=== PATIENT | female | born 1975 | race African-American/Black ===

== ENCOUNTER 2019-06-27 12:49 | Emergency (ER) | payer BC, OTHER ==
[2019-06-27 13:02] VITALS: BP 132/84
[2019-06-27] MEDS ORDERED: LIDOCAINE 5% (700 MG) TRANSDERMAL ADH..PATCH TP ONE (13:37)
[2019-06-27] MEDS ORDERED: DEXAMETHASONE SOD PHOS INJ 10 MG/1 ML VIAL IM ONE (13:37)
[2019-06-27] MEDS ORDERED: KETOROLAC TROMETHAMINE 60 MG/2 ML SDV IM ONE (13:37)
--- NOTE | 2019-06-27 13:43 | ER Document Report ---
HPI - HPI Patient complains to provider of: low back pain, sciatica Time Seen by Provider: 06/27/19 13:26 Onset: Other - jun Onset/Duration: Persistent Quality of pain: Achy Severity: Severe Pain Level: 5 Context: 44-year-old female with history of sciatica in the past presents emergency department with complaints of left-sided sciatica since June 09. Denies trauma. Denies fever vomiting diarrhea. Denies urinary bowel incontinence or retention. Denies IV drug use denies steroid use. Reports she has had sciatica in the past. Feels the same. Reports she is unable to get comfortable in any position. Has tried Aleve and Aspercreme. She reports Aspercreme will relieve the pain for little bit but it comes right back once the Aspercreme wears off. Patient reports the back pain is on the left side low back radiating down her left buttock down her left leg. She reports numbness and tingling at times. Patient is setting mostly on the right side. Associated Symptoms: None Exacerbated by: Supine Relieved by: Denies Similar symptoms previously: Yes Recently seen / treated by doctor: No - REPRODUCTIVE LMP: 05/28/19 Reproductive: DENIES: : Past Medical History - General Information source: Patient Last Menstrual Period: Due any day Denies - Social History Smoking Status: Never Smoker Chew tobacco use (# tins/day): No Lives with: Family Family History: None Patient has suicidal ideation: No Patient has homicidal ideation: No - Past Medical History Cardiac Medical History: Denies: Hx Coronary Artery Disease, Hx Hypertension Endocrine Medical History: Denies: Hx Diabetes Mellitus Type 1, Hx Diabetes Mellitus Type 2 Musculoskeletal Medical History: Reports Other - Sciatica Surgical Hx: Negative Vertical Provider Document - CONSTITUTIONAL Agree With Documented VS: Yes Exam Limitations: No Limitations General Appearance: WD/WN, No Apparent Distress - Patient nontoxic looking happy smiling laughing - INFECTION CONTROL TRAVEL OUTSIDE OF THE [place] IN LAST 30 DAYS: No - HEENT HEENT: Atraumatic, Normocephalic. negative: Conjuctival Injection - NECK Neck: Supple - RESPIRATORY Respiratory: Breath Sounds Normal, No Respiratory Distress - CARDIOVASCULAR Cardiovascular: Regular Rate - GI/ABDOMEN Gastrointestinal: Abdomen Soft, Abdomen Non-Tender - BACK Back: Normal Inspection - Reports very low left-sided back pain that radiates down her buttocks and down her left leg. Denies vertebral tenderness. negative: CVA Tenderness-Right, CVA Tenderness-Left - MUSCULOSKELETAL/EXTREMETIES Musculoskeletal/Extremeties: CHER LONG - NEURO Level of Consciousness: Awake, Alert, Appropriate Motor/Sensory: No Motor Deficit - DERM Integumentary: Warm, Dry Course - Re-evaluation Re-evalutation: 06/27/19 14:08 Patient presents emergency department with sciatica pain. Reports she has had in the past. Lidoderm patch was applied patient received Toradol and steroid shot. She reports she is feeling little bit better. Patient is now able to sit correctly. She was instructed on muscle relaxer and Lidoderm patch. She was also instructed follow-up with her primary care provider for recheck within 1 week. She verbalized understanding to all instructions. Pain on discharge 0/5 Low suspicion for any meningitis, fracture, expanding/ruptured AAA, cauda equina syndrome, epidural mass lesion/abscess, herniated disc causing severe spinal stenosis, or other systemic infection at this time. Patient is aware that this condition can change from initial presentation and that she needs monitor symptoms closely for any acute changes. - Vital Signs Vital signs: Temp Pulse Resp BP Pulse Ox 98.2 F 84 16 132/84 H 98 06/27/19 12:55 06/27/19 12:55 06/27/19 12:55 06/27/19 12:55 06/27/19 12:55 Discharge - Discharge Clinical Impression: Low back pain with sciatica Qualifiers: Chronicity: acute Back pain laterality: left Sciatica laterality: sciatica of left side Qualified Code(s): M54.42 - Lumbago with sciatica, left side Condition: Stable Disposition: HOME, SELF-CARE Instructions: Anti-Inflammatory Medication ([facility]), Muscle Relaxers ([facility]), Sciatica ([facility]), Steroid Medication Injection, Toradol Injection ([facility]) Additional Instructions: *You have been evaluated for low back pain with sciatica *Take medication as prescribed *Apply the Lidoderm patch daily *Take Aleve as indicated for pain *Rest/Ice packs, 20 minutes on 20 minutes off *Follow up with a primary care provider within 1 week for recheck *Return to ED for worsening condition, changes, needs, concerns Monitor your blood pressure. Your blood pressure was elevated today. This may be because you were anxious, in pain or because you need medication. It is important to follow up with your primary care provider for full evaluation. Prescriptions: Cyclobenzaprine HCl [Flexeril 10 Mg Tablet] 10 mg PO TID #15 tablet Lidocaine [Lidoderm 5% (700 mg) Transdermal Patch] 1 patch TP DAILY #30 adh..patch Forms: Elevated Blood Pressure Referrals: NAVEEN PRICE MD [EMERITUS] - Follow up in 3-5 days
== END 2019-06-27 14:23 | disposition home or self-care (01) ==
LOC: ER 12:49
DX: M54.42 Lumbago with sciatica, left side (principal); M79.605 Pain in left leg; R20.0 Anesthesia of skin; Z79.899 Other long term (current) drug therapy
CPT/HCPCS: 99283; 96372; J1885; J1100